=== PATIENT | female | born 1945 | race Caucasian/White ===

== ENCOUNTER 2020-07-27 09:58 | Outpatient (RCR) | payer MEDICARE | END 2020-07-30 | LOC: PT 09:58 | PROVIDERS: ATTEND Specialist ==

== ENCOUNTER 2020-08-13 08:53 | Outpatient (RCR) | payer MEDICARE | END 2020-08-29 | LOC: PT 08:53 | PROVIDERS: ATTEND Specialist | DX: M16.11 Unilateral primary osteoarthritis, right hip (principal); M70.61 Trochanteric bursitis, right hip ==